=== PATIENT | male | born 1990 | race Caucasian/White ===

== ENCOUNTER 2019-04-09 15:13 | Emergency (ER) | payer BC, MEDICAID ==
[~2019-04-09] VITALS: Ht 175.3 cm; Wt 80.0 kg
[~2019-04-09 15:13] MED LIST: CYCL-1 PO; HYDR-4383 PO
[2019-04-09 15:37] VITALS: BP 133/89
== END 2019-04-09 16:47 | disposition home or self-care (01) ==
LOC: ER 15:16
DX: B34.9 Viral infection, unspecified (principal); R50.9 Fever, unspecified; R11.10 Vomiting, unspecified; M79.18 Myalgia, other site; Z79.899 Other long term (current) drug therapy
CPT/HCPCS: 99281

== ENCOUNTER 2019-06-03 16:05 | Emergency (ER) | payer MEDICAID ==
[~2019-06-03] VITALS: Ht 175.3 cm; Wt 110.0 kg
[2019-06-03 16:11] VITALS: BP 128/87
[2019-06-03] MEDS ORDERED: ALBU8.5H8 IH (16:30)
[2019-06-03] MEDS ORDERED: BENZ-16 PO (16:30)
[2019-06-03] MEDS ORDERED: AZIT250T83 PO (16:30)
[2019-06-03] MEDS ORDERED: PRED20TA PO (16:30)
--- NOTE | 2019-06-03 17:18 | NUR ---
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
== END 2019-06-03 17:26 | disposition home or self-care (01) ==
LOC: ER 16:05
DX: J20.9 Acute bronchitis, unspecified (principal); Z20.828 Contact with and (suspected) exposure to other viral communicable diseases; R06.02 Shortness of breath; R05 Cough; R68.83 Chills (without fever); Z98.890 Other specified postprocedural states; Z79.2 Long term (current) use of antibiotics; Z79.899 Other long term (current) drug therapy
CPT/HCPCS: 36415; 99283; C9803; U0003

== ENCOUNTER 2019-06-11 15:55 | Emergency (ER) | payer MEDICAID ==
[~2019-06-11] VITALS: Ht 175.3 cm; Wt 100.0 kg
[~2019-06-11 15:55] MED LIST changes: +ALBU8.5H8 IH; +BENZ-16 PO
[2019-06-11 16:06] VITALS: BP 149/100
== END 2019-06-11 16:28 | disposition home or self-care (01) ==
LOC: ER 15:56
DX: R50.9 Fever, unspecified (principal); Z20.828 Contact with and (suspected) exposure to other viral communicable diseases; R06.02 Shortness of breath; R05 Cough; Z79.899 Other long term (current) drug therapy
CPT/HCPCS: 36415; 87635; 99283

== ENCOUNTER 2024-01-02 18:14 | Emergency (ER) | payer MEDICAID ==
[~2024-01-02] VITALS: Ht 175.3 cm; Wt 104.5 kg
[~2024-01-02 18:14] MED LIST changes: +ALBU8.5H17 IH; -ALBU8.5H8 IH
[2024-01-02 18:22] VITALS: BP 168/131; TEMP 97.6
[2024-01-02 19:02] LABS: BASOPHILS % (AUTO) 0.5 % (0-1); EOSINOPHILS # (AUTO) 0.2 X10'3 (0-0.9); EOSINOPHILS % (AUTO) 1.8 % (0-6); HEMOGLOBIN 16.4 g/dl (14.0-17.9); LYMPHOCYTES # (AUTO) 3.6 X10'3 (1.1-4.8); LYMPHOCYTES % (AUTO) 35.1 % (21-51); MEAN CORPUSCULAR HEMOGLOBIN 30.3 PG (27.0-31.0); MEAN CORPUSCULAR HGB CONC 33.5 g/dL (33.0-36.5); MEAN CORPUSCULAR VOLUME 90.3 FL (78-98); MEAN PLATELET VOLUME 7.9 FL (7.4-10.4); MONOCYTES # (AUTO) 0.8 X10'3 (0-0.9); MONOCYTES % (AUTO) 7.3 % (2-12); NEUTROPHILS # (AUTO) 5.7 X10'3 (1.8-7.7); NEUTROPHILS % (AUTO) 55.3 % (42-75); PLATELET COUNT 331 X10'3 (140-440); RED BLOOD COUNT 5.42 X10'6 (4.70-6.10); RED CELL DISTRIBUTION WIDTH 13.2 % (11.5-14.5); WHITE BLOOD COUNT 10.3 X10'3 (4.5-11.0)
[2024-01-02 19:11] LABS: ALANINE AMINOTRANSFERASE 31 U/L (12-78); ALBUMIN 3.9 G/DL (3.4-5.0); ALBUMIN/GLOBULIN RATIO 1.1 (1.1-1.5); ALKALINE PHOSPHATASE 103 IU/L (46-116); ANION GAP 9 (8-16); ASPARTATE AMINO TRANSFERASE 15 U/L (10-37); BILIRUBIN,TOTAL 0.7 MG/DL (0.1-1.0); BLOOD UREA NITROGEN 11 MG/DL (7-18); BUN/CREATININE RATIO 10.2 (10.0-20.0); CALCIUM 9.1 MG/DL (8.5-10.1); CHLORIDE 105 MMOL/L (99-107); CREATININE 1.08 MG/DL (0.60-1.10); GLUCOSE 106 MG/DL (70-104); POTASSIUM 3.6 MMOL/L (3.5-5.1); SODIUM 142 MMOL/L (135-145); TOTAL CARBON DIOXIDE 28.5 MMOL/L (24-32); TOTAL PROTEIN 7.4 G/DL (6.4-8.2); eCRCL 96 ML/MIN; eGFR 78 ML/MIN
[2024-01-02 19:20] LABS: PRO BRAIN NATRIURETIC PEPTIDE 207 PG/ML (0-125)
[2024-01-02] MEDS ORDERED: OMEP40CA21 PO (20:06)
[2024-01-02] MEDS ORDERED: GABA300C PO (20:06)
[2024-01-02 20:13] VITALS: PULSE 76; RESP 16; O2SAT 99
[2024-01-02] MEDS: mag hydrox/Alum hydrox/simeth 30ml oral suspension PO ONE (20:20)
[2024-01-02] MEDS: LIDOcaine 2% Viscous 15ml cup MM PRN (20:20)
== END 2024-01-02 20:21 | disposition home or self-care (01) ==
LOC: ER 18:15
DX: G62.9 Polyneuropathy, unspecified (principal); R07.89 Other chest pain; Z79.899 Other long term (current) drug therapy
CPT/HCPCS: 36415; 71045; 80053; 83880; 84484; 85025; 93005; 99285